=== PATIENT | male | born 1970 ===

== ENCOUNTER 2018-04-15 06:00 | Inpatient (IN) | payer OTHER ==
[~2018-04-15 06:00] MED LIST: Lactated Ringer's 1,000 ML IV SCH
[2018-04-15 06:42] VITALS: BMI 40.8
[2018-04-15] MEDS ORDERED: Lactated Ringer's 1,000 ML IV ONE ×3 (06:42→09:45)
[2018-04-15] MEDS ORDERED: Dexamethasone 4 mg/1 ml IVPB ONE (06:45)
[2018-04-15] MEDS ORDERED: Bupivacaine 0.25% 20 ML INJ IJ ONE (07:26)
[2018-04-15] MEDS ORDERED: ceFAZolin 1 gm FROZEN Premix 0 GM/0 ML ML IVPB ONE (07:27)
[2018-04-15] MEDS ORDERED: Midazolam 2 MG/2 ML VIAL ONE (07:41)
[2018-04-15] MEDS ORDERED: Propofol 10 mg/ml Inj (20 ML) ONE (07:41)
[2018-04-15] MEDS ORDERED: Succinylcholine Chloride 20 mg/ml Syr (5 ml) IV ONE (08:32)
[2018-04-15] MEDS ORDERED: Neostigmine Methylsulfate 3mg/3ml Syringe IV ONE (08:32)
[2018-04-15] MEDS ORDERED: Acetaminophen IV 1,000 MG in Premixed IV 1 EA IV PRN (09:21)
--- NOTE | 2018-04-15 09:21 | PCM.SURG1 ---
Surgeon's Initial Post Op Note - Surgeon's Notes Surgeon: Dr. Bullock Ssis Ssrs Developer: Dr. Santa; Dr. Jacob PGY2 Type of Anesthesia: General Endo, Block Regional, Local Anesthesia Administered By: Dr. Finnegan Pre-Operative Diagnosis: Morbid Obesity Operative Findings: See operative report Post-Operative Diagnosis: same Operation Performed: Laparascopic Sleeve Gastrectomy; Upper Endoscopy; TAP Block Specimen/Specimens Removed: Partial Stomach Estimated Blood Loss: EBL {In ML}: 30 Blood Products Given: N/A Drains Used: No Drains Post-Op Condition: Good Date of Surgery/Procedure: 04/15/18 Time of Surgery/Procedure: 09:21
[2018-04-15] MEDS ORDERED: HYDROmorphone 0.5 mg/0.5 ml ISec IVP PRN (10:30)
[2018-04-15] MEDS: (Novolin R) Insulin Human Regular 100 units/ml vial SC SCH ×4 (10:53→22:33)
[2018-04-15] MEDS: Lactated Ringer's 1,000 ML IV SCH ×2 (19:00→23:50)
--- NOTE | 2018-04-15 19:35 | OP ---
PROCEDURE DATE: 04/15/2018 INTRAOPERATIVE UPPER ENDOSCOPY PREOPERATIVE DIAGNOSIS: Morbid obesity. POSTOPERATIVE DIAGNOSIS: Morbid obesity. PROCEDURE: Intraoperative upper endoscopy. SURGEON: Mitch Santa MD ANESTHESIA: General. COMPLICATIONS: None. SPECIMENS: None. INDICATIONS: This is a 47-year-old male undergoing laparoscopic sleeve gastrectomy, requiring intraoperative upper endoscopy for evaluation and retest. PROCEDURE: An Olympus upper endoscope was inserted into the oropharynx and passed bluntly through the hypopharynx into the proximal esophagus. Insufflation was begun and the scope was passed under direct vision through the proximal, mid, and distal esophagus with care taken to look at a full 360 degrees of exposed mucosa. Beginning at the fundus, the gastric sleeve staple line was carefully examined and found to have no evidence of hemorrhage or intraluminal clot. All excess insufflated air was aspirated and the scope was withdrawn. The patient remained intubated in the operating room for completion of the operative procedure. Mitch Santa MD
--- NOTE | 2018-04-16 01:59 | OP ---
PROCEDURE DATE: 04/15/2018 PREOPERATIVE DIAGNOSIS: Morbid obesity. POSTOPERATIVE DIAGNOSIS: Morbid obesity. PROCEDURE: Laparoscopic sleeve gastrectomy, TAP block, and upper endoscopy. COMPLICATIONS: None. ANESTHESIA: General. INDICATION: This is a 47-year-old male with a history of morbid obesity who meets the NIH criteria for bariatric surgery. SURGEON: Kannan Bullock MD JUMP IRON MACHINE PRESSER SURGEON: Mitch Santa MD DESCRIPTION OF PROCEDURE: The patient was brought to the operating room and placed in supine position on the operating room table. General endotracheal anesthesia was induced by the anesthesia team. A Ruff catheter was inserted to decompress the bladder. Precautions were taken to pad the patient well using gel padding in the back, feet, and arms to prevent postoperative pain. The patient was prepped and draped in the usual sterile fashion. The executive chef assistant placed a Veress needle in the left upper quadrant below the costal margin to establish pneumoperitoneum to 15 mmHg. A 12-mm Optiview port along with 0-degree laparoscope was inserted in the midline, superior to the umbilicus with no evidence of injury upon entering. Next, the scope was changed to 45 degree and the Veress needle was removed under vision. Under laparoscopic guidance, a transversus abdominis plane block was performed by injecting 30 cc of 0.25% Marcaine into multiple sites along the left flank. The solution was injected into the plane between the internal oblique and the transversus abdominis muscles to aid in postoperative analgesia. This procedure was repeated on the right flank for maximum efficacy. A 15-mm trocar was placed in the right midclavicular line above the umbilicus. Additionally, two 5-mm trocars were placed in the right and left flank below the costal margin. All trocars were placed under direct vision. A liver retractor (Ana) was inserted through a separate stab incision 1 cm below the xiphoid process and was attached to a retracting device secured to the left side of the table. The entire procedure was performed laparoscopically. The primary surgeon operated from the right side of the patient and the executive chef assistant operated from the left side of the patient. The lesser sac was entered by first dividing the gastrocolic ligament along the midpoint of the greater curvature of the stomach with a harmonic scalpel. The dissection was performed close to the stomach to avoid the gastroepiploic artery. Dissection proceeded proximally toward the angle of His. The executive chef assistant dissected out and ligated the short gastric arteries with the harmonic scalpel. Care was taken to avoid injury to the spleen. We then returned to the point, where the dissection began more distally on the greater curvature. The executive chef assistant used the Harmonic scalpel and continued distally along the greater curvature to approximately 4 to 6 cm from the pylorus. At this point, a 40-Yoruba bougie was inserted by the anesthesia team and was aligned medially and passed under vision to the region of the pylorus. The executive chef assistant grasped the greater curvature of the stomach with a loop grasper and retracted laterally. The sleeve gastrectomy was performed using sequential firings of a 60-mm Endo ZULMA stapler ([employer]). For the initial two firings, a green load was used where the stomach tissue was thicker. The remaining firings were done using gold and blue loads. Care was taken to avoid narrowing the distal aspect of the sleeve. The anterior and posterior vagus nerves were identified and preserved throughout their course. Sequential firings of the stapler continued up to the angle of [facility]. Care was taken to ensure equal tension along the entire staple line to prevent kinking of the sleeve. The entire staple line was reinforced with SeamGuard buttressing material to help reduce the chance of bleeding or a leak. An upper endoscopy was performed (to be dictated separately) in order to evaluate the gastric mucosa as well as perform a leak test. The distal stomach was occluded and the upper abdomen was filled with saline solution in order to submerge the entire staple line. Air was insufflated and no bubbles were visualized. The saline was suctioned off and the scope removed. The resected stomach was placed in a large EndoCatch bag for later removal. The area was carefully inspected and hemostasis ensured. The fascia of the 15-mm port site was closed using 0 Vicryl interrupted suture on the Endoclose device. The liver retractor and all ports were removed under vision and pneumoperitoneum evacuated. The specimen was removed through the 15-mm port site and was sent off the field. The skin on all port sites was closed with 4-0 Monocryl subcuticular sutures followed by Dermabond for dressing. All sponge and instruments counts were correct at the end of the procedure. The patient tolerated the procedure well, was extubated in the operating room and was transferred to the recovery room in stable condition. Kannan Bullock MD [facility] # [id number]
[2018-04-16] MEDS: Lactated Ringer's 1,000 ML IV SCH (03:40)
[2018-04-16 08:09] VITALS: BP 129/80; RESP 18; TEMP 98; O2SAT 96
[2018-04-16] MEDS ORDERED: Iohexol 240 200 ML ONE (08:11)
[2018-04-16] MEDS ORDERED: Barium Sulfate for Susp 96% w/w 176g Bottle PR ONE (08:11)
[2018-04-16 08:43] LABS: BASO # 0.1 K/uL (0.0-0.2); BASO % 0.4 % (0.0-2.0); EOS # 0.1 K/uL (0.0-0.7); EOS % 0.3 % (0.0-4.0); LYMPH # 2.4 K/uL (1.0-4.3); LYMPH % 14.5 % (20.0-40.0); MEAN CELL VOLUME 85.1 fL (80.0-94.0); MEAN CORPUSCULAR HEMOGLOBIN 30.2 pg (27.0-31.0); MEAN CORPUSCULAR HGB CONC 35.5 g/dL (33.0-37.0); MEAN PLATELET VOLUME 8.2 fL (7.2-11.7); MONO % 6.3 % (0.0-10.0); NEUT # 13.1 K/uL (1.8-7.0); NEUT % 78.5 % (50.0-75.0); RBC 4.85 Mil/uL (4.40-5.90); RED CELL DISTRIBUTION WIDTH 13.2 % (11.5-14.5); WHITE BLOOD COUNT 16.7 K/uL (4.8-10.8)
[2018-04-16 08:45] LABS: HEMOGLOBIN 14.7 g/dL (12.0-18.0)
[2018-04-16 09:02] LABS: BLOOD UREA NITROGEN 11 mg/dL (9-20); CALCIUM 8.7 mg/dl (8.6-10.4); GFR NON-AFRICAN AMERICAN > 60
[2018-04-16] MEDS ORDERED: Enoxaparin 40 mg Syringe SC SCH (10:00)
[2018-04-16 10:02] VITALS: PULSE 70
--- NOTE | 2018-04-16 12:30 | RAD ---
Date of service: 04/16/2018 PROCEDURE: Upper GI with small bowel series. HISTORY: Status post gastric sleeve surgery COMPARISON: None available. TECHNIQUE: Fluoroscopic evaluation of the stomach was performed following administration of oral contrast. FINDINGS: Multiple surgical clips are seen along the greater curvature. There is normal tubular appearance of the stomach. The gastroesophageal junction is normal. There is smooth passage of contrast from the esophagus into the stomach and stomach into the duodenum and proximal bowel. No evidence of extraluminal contrast to suggest postoperative leak. The total fluoroscopic time was 1.3 minutes. IMPRESSION: Status post gastric sleeve surgery, no evidence of postoperative leak.
--- NOTE | 2018-04-16 19:41 | CP.PCM.DIS ---
Provider - Provider Date of Admission: 04/15/18 06:00 Attending physician: Kannan Bullock MD Time Spent in preparation of Discharge (in minutes): 45 Hospital Course - Lab Results Lab Results: Most Recent Lab Values WBC 16.7 K/uL (4.8-10.8) H 04/16/18 08:25 RBC 4.85 Mil/uL (4.40-5.90) 04/16/18 08:25 Hgb 14.7 g/dL (12.0-18.0) D 04/16/18 08:25 Hct 41.3 % (35.0-51.0) 04/16/18 08:25 MCV 85.1 fL (80.0-94.0) 04/16/18 08:25 MCH 30.2 pg (27.0-31.0) 04/16/18 08:25 MCHC 35.5 g/dL (33.0-37.0) 04/16/18 08:25 RDW 13.2 % (11.5-14.5) 04/16/18 08:25 Plt Count 239 K/uL (130-400) 04/16/18 08:25 MPV 8.2 fL (7.2-11.7) 04/16/18 08:25 Neut % (Auto) 78.5 % (50.0-75.0) H 04/16/18 08:25 Lymph % (Auto) 14.5 % (20.0-40.0) L 04/16/18 08:25 [place] % (Auto) 6.3 % (0.0-10.0) 04/16/18 08:25 Eos % (Auto) 0.3 % (0.0-4.0) 04/16/18 08:25 Baso % (Auto) 0.4 % (0.0-2.0) 04/16/18 08:25 Neut # (Auto) 13.1 K/uL (1.8-7.0) H 04/16/18 08:25 Lymph # (Auto) 2.4 K/uL (1.0-4.3) 04/16/18 08:25 [place] # (Auto) 1.0 K/uL (0.0-0.8) H 04/16/18 08:25 Eos # (Auto) 0.1 K/uL (0.0-0.7) 04/16/18 08:25 Baso # (Auto) 0.1 K/uL (0.0-0.2) 04/16/18 08:25 Sodium 136 mmol/L (132-148) 04/16/18 08:25 Potassium 3.9 mmol/L (3.6-5.2) 04/16/18 08:25 Chloride 103 mmol/L (98-107) 04/16/18 08:25 Carbon Dioxide 24 mmol/L (22-30) 04/16/18 08:25 Anion Gap 13 (10-20) 04/16/18 08:25 BUN 11 mg/dL (9-20) 04/16/18 08:25 Creatinine 0.7 mg/dL (0.8-1.5) L 04/16/18 08:25 Est GFR ( Amer) > 60 04/16/18 08:25 Est GFR (Non-Af Amer) > 60 04/16/18 08:25 POC Glucose (mg/dL) 121 mg/dL (65-110) H 04/16/18 10:49 Random Glucose 131 mg/dL (75-110) H 04/16/18 08:25 Calcium 8.7 mg/dl (8.6-10.4) 04/16/18 08:25 - Hospital Course Hospital Course: 47yo M with Morbid Obesity, here for laparoscopic sleeve gastrectomy. POD 0, patient tolerated bariatric clears. Overnight, patient did well, pain well tolerated. He did not have any episodes of abdominal pain or tachycardia. POD 1, patient obtained a UGIS which was negative for any leak or obstruction. Patient was cleared for discharge upon tolerating 20oz of liquid. Discussed follow up plan with patient who understands and agrees with plan. Discharge Exam - Head Exam Head Exam: ATRAUMATIC, NORMAL INSPECTION, NORMOCEPHALIC - Eye Exam Eye Exam: EOMI. absent: Scleral icterus - ENT Exam ENT Exam: Mucous Membranes Moist - Respiratory Exam Respiratory Exam: NORMAL BREATHING PATTERN. absent: Accessory Muscle Use, Respiratory Distress - Cardiovascular Exam Cardiovascular Exam: absent: JVD - GI/Abdominal Exam GI & Abdominal Exam: Soft. absent: Distended, Firm, Rebound, Rigid, Tenderness Additional comments: Incisions clean, dry and intact - Extremities Exam Extremities exam: normal inspection - Neurological Exam Neurological exam: Alert, Oriented x3 - Psychiatric Exam Psychiatric exam: Normal Affect, Normal Mood - Skin Skin Exam: Dry, Intact, Normal Color, Warm Discharge Plan - Follow Up Plan Condition: GOOD Disposition: HOME/ ROUTINE Instructions: Quitting Smoking for Older Adults, Vertical Sleeve Gastrectomy, Laparoscopic Surgery, Quitting Smoking, Managing Pain After Surgery Additional Instructions: Follow up in one week Referrals: Kannan Bullock MD [Staff Provider] -
== END 2018-04-16 13:16 | disposition home or self-care (01) | DRG 621 ==
LOC: C.9S 06:00 → C.6T 20:02
PROVIDERS: ADMIT Surgery; ATTEND Surgery
PROC: 0DB64Z3 Excision of Stomach, Percutaneous Endoscopic Approach, Vertical (ICD-10-PCS; principal; 2018-04-15 07:45)
PROC: 0DJ08ZZ Inspection of Upper Intestinal Tract, Via Natural or Artificial Opening Endoscopic (ICD-10-PCS; 2018-04-15 07:45)
DX: E66.01 Morbid (severe) obesity due to excess calories (principal); Z68.41 Body mass index [BMI] 40.0-44.9, adult